=== PATIENT | male | born 1985 | race Caucasian/White ===

== ENCOUNTER 2017-11-19 10:23 | Emergency (ER) | payer MEDICAID, OTHER ==
[2017-11-19 10:23] VITALS: BMI 22.4
[2017-11-19 10:35] VITALS: TEMP 98
[2017-11-19] MEDS ORDERED: Sodium Chloride 0.9% 1,000 ML ONE (11:28)
[2017-11-19] MEDS: Sodium Chloride 0.9% 1,000 ML IV ONE (11:31)
[2017-11-19 11:35] LABS: BASO % 1.1 % (0.0-2.0); EOS # 0.1 K/uL (0.0-0.7); EOS % 2.1 % (0.0-4.0); HEMOGLOBIN 15.4 g/dL (12.0-18.0); LYMPH # 2.1 K/uL (1.0-4.3); LYMPH % 49.8 % (20.0-40.0); MEAN CELL VOLUME 91.2 fL (80.0-94.0); MEAN CORPUSCULAR HEMOGLOBIN 31.5 pg (27.0-31.0); MEAN CORPUSCULAR HGB CONC 34.5 g/dL (33.0-37.0); MEAN PLATELET VOLUME 9.8 fL (7.2-11.7); MONO # 0.4 K/uL (0.0-0.8); MONO % 9.1 % (0.0-10.0); NEUT # 1.6 K/uL (1.8-7.0); NEUT % 37.9 % (50.0-75.0); NRBC % 0.1 % (0.0-2.0); RBC 4.88 Mil/uL (4.40-5.90); RED CELL DISTRIBUTION WIDTH 13.5 % (11.5-14.5); WHITE BLOOD COUNT 4.1 K/uL (4.8-10.8)
[2017-11-19 11:48] LABS: ALBUMIN 4.2 g/dL (3.5-5.0); BLOOD UREA NITROGEN 14 mg/dL (9-20); CALCIUM 9.5 mg/dl (8.6-10.4); GFR AFRICAN-AMERICAN > 60; GFR NON-AFRICAN AMERICAN > 60
[2017-11-19 11:49] LABS: ALB/GLOB RATIO 1.5 (1.0-2.1); ALT/SGPT 22 U/L (21-72); AST/SGOT 29 U/L (17-59); LIPASE 134 U/L (23-300)
--- NOTE | 2017-11-19 13:37 | CP.PCM.CON ---
History of Present Illness - History of Present Illness History of Present Illness: Gastroenterology Fellow/PGY5 Consult Note 32yo man with PMH Diabetes, Depression, and Anxiety presenting with vomiting. Endorses increased stress since July 2017 due to personal stressors and court appearances leading to increased alcohol and tobacco abuse for the last three months. Admits to similar episodes of vomiting since 07/2015 that occurred once every two weeks with progression to daily induced vomiting of acid reflux on first awakening due to increased drinking at night, eating dinner before bed , and immediately going to sleep. Admits to using Nexium for only four days in 2016 after diagnosis of small Rafaela-downey tear. Patient notes induced vomiting yesterday morning followed by burning sensation in the back of his throat. He coughed up 2 ounces of bright red blood a few times throughout the day. Attempted to gargle salt water with worsened irritation of his throat. He has used chloraseptic spray OTC last night and this morning with unchanged burning sensation of his gingiva and back of his throat. Prior EGD 07/2015 showed small Rafaela Downey tear at GE junction and H pylori negative gastritis. Social history: increased alcohol use since 07/2017 10 shots whiskey daily, marijuana daily, 2ppd since 07/2017 with prior 1/2 ppd Family history: Mom- Diabetes, Dad- HTN Surgical history: Tonsillectomy Review of Systems - Review of Systems Review of Systems: 12-point review of systems negative except for as above Past Patient History - Infectious Disease Hx of Infectious Diseases: None - Past Medical History & Family History Past Medical History?: Yes - Past Social History Smoking Status: Heavy Smoker > 10 Cigarettes Daily - CARDIAC Hx Cardiac Disorders: No - PULMONARY Hx Respiratory Disorders: No - NEUROLOGICAL Hx Neurological Disorder: No - HEENT Hx HEENT Problems: Yes (BIFOCAL) - RENAL Hx Chronic Kidney Disease: No - ENDOCRINE/METABOLIC Hx Endocrine Disorders: Yes Hx Diabetes Mellitus Type 2: Yes - HEMATOLOGICAL/ONCOLOGICAL Hx Blood Disorders: No - INTEGUMENTARY Hx Dermatological Problems: No - MUSCULOSKELETAL/RHEUMATOLOGICAL Hx Musculoskeletal Disorders: No - GASTROINTESTINAL Hx Gastrointestinal Disorders: Yes (ACID REFLUX, NAUSEA AND VOMITING) - GENITOURINARY/GYNECOLOGICAL Hx Genitourinary Disorders: No - PSYCHIATRIC Hx Psychophysiologic Disorder: Yes Hx Anxiety: Yes Hx Depression: Yes Hx Substance Use: Yes (marijuana 2 days ago) - SURGICAL HISTORY Hx Surgeries: Yes Hx Tonsillectomy: Yes - ANESTHESIA Hx Anesthesia: Yes Hx Anesthesia Reactions: No Hx Malignant Hyperthermia: No Meds Home Medications: Home Medication List Medication Instructions Recorded Confirmed Type Pantoprazole [Protonix EC Tab] 20 mg PO DAILY #30 ect 11/19/17 Rx Sucralfate [Carafate Oral Susp] 1 gm PO BID #1 bottle 11/19/17 Rx Allergies/Adverse Reactions: Allergies Allergy/AdvReac Type Severity Reaction Status Date / Time No Known Allergies Allergy Verified 11/19/17 10:35 Physical Exam - Constitutional Appears: Non-toxic, No Acute Distress - Head Exam Head Exam: ATRAUMATIC, NORMOCEPHALIC - Eye Exam Eye Exam: EOMI, PERRL. absent: Scleral icterus Pupil Exam: PERRL. absent: Miosis, Mydriatic - ENT Exam ENT Exam: Mucous Membranes Moist, Normal Oropharynx - Neck Exam Neck exam: Positive for: Full Rom, Normal Inspection - Respiratory Exam Respiratory Exam: Clear to Auscultation Bilateral. absent: Rales, Rhonchi, Wheezes - Cardiovascular Exam Cardiovascular Exam: RRR, +S1, +S2. absent: Gallop, Rubs - GI/Abdominal Exam GI & Abdominal Exam: Normal Bowel Sounds, Soft. absent: Distended, Firm, Guarding, Organomegaly, Rebound, Rigid, Tenderness - Extremities Exam Extremities exam: Positive for: full ROM, normal inspection. Negative for: pedal edema - Neurological Exam Neurological exam: Alert, Oriented x3 - Psychiatric Exam Psychiatric exam: Normal Affect, Normal Mood - Skin Skin Exam: Dry, Intact, Normal Color, Warm Results - Vital Signs Recent Vital Signs: Last Vital Signs Temp 98 F 11/19/17 10:30 Pulse 85 11/19/17 10:30 Resp 18 11/19/17 10:30 BP 127/77 11/19/17 10:30 Pulse Ox 97 11/19/17 10:30 - Labs Result Diagrams: 11/19/17 11:31 11/19/17 11:31 Labs: Laboratory Results - last 24 hr 11/19/17 11/19/17 11:31 11:31 WBC 4.1 L RBC 4.88 Hgb 15.4 Hct 44.5 MCV 91.2 MCH 31.5 H MCHC 34.5 RDW 13.5 Plt Count 147 MPV 9.8 Neut % (Auto) 37.9 L Lymph % (Auto) 49.8 H [place] % (Auto) 9.1 Eos % (Auto) 2.1 Baso % (Auto) 1.1 Neut # (Auto) 1.6 L Lymph # (Auto) 2.1 [place] # (Auto) 0.4 Eos # (Auto) 0.1 Baso # (Auto) 0.0 Sodium 142 Potassium 4.1 Chloride 105 Carbon Dioxide 24 Anion Gap 17 BUN 14 Creatinine 0.8 Est GFR ( Amer) > 60 Est GFR (Non-Af Amer) > 60 Random Glucose 131 H Calcium 9.5 Total Bilirubin 0.4 AST 29 ALT 22 Alkaline Phosphatase 100 Total Protein 7.1 Albumin 4.2 Globulin 2.9 Albumin/Globulin Ratio 1.5 Lipase 134 Assessment & Plan - Assessment and Plan (Free Text) Assessment: 32yo man with PMH Diabetes, Depression, and Anxiety presenting with throat irritation after resolved coughing up of 2 ounces of blood over 24 hours ago. Active treatment of throat irritation 2/2 mucosal tear from fingernail trauma due to induced vomiting and acid reflux. Prior EGD 07/2015 showed small Rafaela Downey tear at GE junction and H pylori negative gastritis. Plan: -H/H stable -hemodynamically stable -resolved coughing up blood since the morning of 11/17/17 -start Protonix 40mg BID and carafate 1g BID for 2 weeks -followed by [facility] as needed -counselled on tobacco, alcohol, and marijuana cessation -counselled on dietary lifestyle modifications -follow up with Dr. Elliott in outpatient office in 2 weeks -counselled to follow up with PCP in regards to Anxiety -patient agrees to above plan
--- NOTE | 2017-11-19 13:45 | C.PDOC ---
History Of Present Illness 32-year-old male, PMHx includes gastric ulcers, presents to the emergency department with complaints of multiple episodes of blood streaked vomiting and abdominal pain since this morning . Patient states he called his GI anhd was instructed to come to ED for further evaluation. Patient states he had an endoscopy 2-3 yrs ago. He is also complaining of sore throat, states he puts his hand in his mouth to induce vomiting. Patient denies fever, chills, chest pain, shortness of breath, dysuria. GI Dr Elliott Time Seen by Provider: 11/19/17 10:39 Chief Complaint (Nursing): Abdominal Pain History Per: Patient History/Exam Limitations: no limitations Onset/Duration Of Symptoms: Days Current Symptoms Are (Timing): Still Present Severity: Moderate Location Of Pain/Discomfort: Epigastric Past Medical History Reviewed: Historical Data, Nursing Documentation, Vital Signs Vital Signs: Last Vital Signs Temp 98 F 11/19/17 10:30 Pulse 69 11/19/17 14:07 Resp 20 11/19/17 14:07 BP 126/72 11/19/17 14:07 Pulse Ox 97 11/19/17 14:44 - Medical History PMH: Anxiety, Depression, Diabetes, Pneumonia (WHEN CHILD) Surgical History: Endoscopy, Tonsillectomy - [facility] Procedures IMMOBILIZ/WOUND ATTN NEC (11/09/14) INJECT ANTIBIOTIC (01/05/05) INJECT/INFUSE ELECTROLYT (06/20/12) INJECT/INFUSE NEC (06/20/12) NEBULIZER THERAPY (06/20/12) Family History: States: No Known Family Hx - Social History Hx Tobacco Use: Yes Hx Alcohol Use: No Hx Substance Use: Yes (marijuana 2 days ago) - Immunization History Hx Tetanus Toxoid Vaccination: No Review Of Systems Constitutional: Negative for: Fever, Chills ENT: Positive for: Throat Pain Cardiovascular: Negative for: Chest Pain, Palpitations Respiratory: Negative for: Cough, Shortness of Breath Gastrointestinal: Positive for: Nausea, Vomiting, Abdominal Pain, Hematemesis. Negative for: Diarrhea, Constipation, Hematochezia Genitourinary: Negative for: Dysuria, Hematuria Musculoskeletal: Negative for: Back Pain Physical Exam - Physical Exam Appears: Well, Non-toxic, No Acute Distress, Other (anxious appearing ) Skin: Normal Color, Warm, Dry, No Rash Head: Normacephalic Eye(s): bilateral: Normal Inspection Oral Mucosa: Moist Throat: Normal, No Erythema, No Exudate Neck: Normal, Normal ROM Cardiovascular: Rhythm Regular Respiratory: Normal Breath Sounds, No Rales, No Rhonchi, No Wheezing Gastrointestinal/Abdominal: Bowel Sounds, Soft, Tenderness (epigastric TTP), No Guarding, No Rebound, Other ((-)McBurney's, (-)Sheridan's) Extremity: Normal ROM Neurological/Psych: Oriented x3 ED Course And Treatment - Laboratory Results Result Diagrams: 11/19/17 11:31 11/19/17 11:31 O2 Sat by Pulse Oximetry: 97 (RA) Pulse Ox Interpretation: Normal Progress Note: Bloodwork and UA ordered and reviewed. Patient given IV NS bolus , IV Protonix. GI fellow came to ED to evaluate patient - recommends discharge home with Carafate and Protonix. Reevaluation Time: 13:45 Reassessment Condition: Improved (Patient resting comfortably, in no pain/ distress. On exam abdomen is soft and nontender. No episodes of vomiting in ED. Patient given Rxs for Protonix and Carafate, and he was instructed to follow up with GI within 1 week. He understands he should return to ED if symptoms worsen.) Disposition Counseled Patient/Family Regarding: Studies Performed, Diagnosis, Need For Followup, Rx Given - Disposition Referrals: Kamar Elliott MD [Staff Provider] - Disposition: HOME/ ROUTINE Disposition Time: 13:45 Condition: STABLE Additional Instructions: FOLLOW UP WITH YOUR DOCTOR IN 1-2 DAYS, AND WITH GI WITHIN 1 WEEK USE MEDICATIONS DIRECTED RETURN TO ER IF SYMPTOMS WORSEN Prescriptions: Pantoprazole [Protonix EC Tab] 20 mg PO DAILY #30 ect Sucralfate [Carafate Oral Susp] 1 gm PO BID #1 bottle Instructions: Nausea and Vomiting, Adult (DC) Forms: [employer] (Samoan) Print Language: ICELANDIC - Clinical Impression Clinical Impression: Nausea & vomiting - Scribe Statement The provider has reviewed the documentation as recorded by the Scribe (Ramses Burroughs) All medical record entries made by the Scribe were at my direction and personally dictated by me. I have reviewed the chart and agree that the record accurately reflects my personal performance of the history, physical exam, medical decision making, and the department course for this patient. I have also personally directed, reviewed, and agree with the discharge instructions and disposition.
--- NOTE | 2017-11-19 13:47 | C.PDOC ---
Time Seen by Provider: 11/19/17 10:39 Chief Complaint (Nursing): Abdominal Pain Past Medical History Vital Signs: Last Vital Signs Temp 98 F 11/19/17 10:30 Pulse 85 11/19/17 10:30 Resp 18 11/19/17 10:30 BP 127/77 11/19/17 10:30 Pulse Ox 97 11/19/17 10:30 - Medical History PMH: Anxiety, Depression, Diabetes, Pneumonia (WHEN CHILD) Denies: Hepatitis, HIV, HTN, Chronic Kidney Disease, Seizures, Sexually Transmitted Disease Surgical History: Endoscopy, Tonsillectomy - [facility] Procedures IMMOBILIZ/WOUND ATTN NEC (11/09/14) INJECT ANTIBIOTIC (01/05/05) INJECT/INFUSE ELECTROLYT (06/20/12) INJECT/INFUSE NEC (06/20/12) NEBULIZER THERAPY (06/20/12) - Social History Hx Tobacco Use: Yes Hx Alcohol Use: No Hx Substance Use: Yes (marijuana 2 days ago) - Immunization History Hx Tetanus Toxoid Vaccination: No ED Course And Treatment - Laboratory Results Result Diagrams: 11/19/17 11:31 11/19/17 11:31 O2 Sat by Pulse Oximetry: 97 Disposition Counseled Patient/Family Regarding: Diagnosis, Need For Followup, Rx Given - Disposition Referrals: Kamar Elliott MD [Staff Provider] - Disposition: HOME/ ROUTINE Disposition Time: 13:45 Condition: STABLE Additional Instructions: FOLLOW UP WITH YOUR DOCTOR IN 1-2 DAYS, AND WITH GI WITHIN 1 WEEK USE MEDICATIONS DIRECTED RETURN TO ER IF SYMPTOMS WORSEN Prescriptions: Pantoprazole [Protonix EC Tab] 20 mg PO DAILY #30 ect Sucralfate [Carafate Oral Susp] 1 gm PO BID #1 bottle Instructions: Nausea and Vomiting, Adult (DC) Print Language: BELGIAN - POA Present On Arrival: None - Clinical Impression Clinical Impression: Nausea & vomiting
[2017-11-19 14:08] VITALS: BP 126/72; PULSE 69; RESP 20
[2017-11-19 14:42] VITALS: O2SAT 97
== END 2017-11-19 14:07 | disposition home or self-care (01) ==
LOC: C.ER 10:23
DX: R11.2 Nausea with vomiting, unspecified (principal)
CPT/HCPCS: 80053; 83690; 85025; 96361; 96374; 99283; C9113; J7040

== ENCOUNTER 2018-09-23 20:13 | Emergency (ER) | payer MEDICAID, OTHER ==
[2018-09-23 20:14] VITALS: BMI 22.4
[2018-09-23 20:25] VITALS: BP 122/85; PULSE 110; RESP 20; TEMP 98.2; O2SAT 98
[2018-09-23] MEDS ORDERED: Sodium Chloride 0.9% 1,000 ML IV ONE (20:43)
--- NOTE | 2018-09-23 20:45 | C.PDOC ---
History Of Present Illness 32 year old male with Hx of substance abuse presents with abdominal pain, vomiting and diarrhea. Last heroin use was 2 days ago. Patient also requests detox. Denies fever or other complaints. Time Seen by Provider: 09/23/18 20:27 Chief Complaint (Nursing): Substance Abuse History Per: Patient History/Exam Limitations: no limitations Onset/Duration Of Symptoms: Hrs Current Symptoms Are (Timing): Still Present Suicide/Self Injury Attempted (Context): None Modifying Factor(s): None Associated Symptoms: Other (Abdominal pain, vomiting, diarrhea) Involuntary Hold By: None Recent travel outside of the [place]: No Past Medical History Reviewed: Historical Data, Nursing Documentation, Vital Signs Vital Signs: Last Vital Signs Temp 98.2 F 09/23/18 20:21 Pulse 110 H 09/23/18 20:21 Resp 20 09/23/18 20:21 BP 122/85 09/23/18 20:21 Pulse Ox 98 09/23/18 20:21 - Medical History PMH: Anxiety, Depression, Diabetes, Pneumonia (WHEN CHILD) Denies: Hepatitis, HIV, HTN, Chronic Kidney Disease, Seizures, Sexually Transmitted Disease Surgical History: Endoscopy, Tonsillectomy - [facility] Procedures IMMOBILIZ/WOUND ATTN NEC (11/09/14) INJECT ANTIBIOTIC (01/05/05) INJECT/INFUSE ELECTROLYT (06/20/12) INJECT/INFUSE NEC (06/20/12) NEBULIZER THERAPY (06/20/12) Family History: States: No Known Family Hx - Social History Hx Tobacco Use: Yes Hx Alcohol Use: No Hx Substance Use: Yes (marijuana 2 days ago) - Immunization History Hx Tetanus Toxoid Vaccination: No Hx Influenza Vaccination: No Hx Pneumococcal Vaccination: No Review Of Systems Constitutional: Negative for: Fever, Chills Cardiovascular: Negative for: Chest Pain, Palpitations Respiratory: Negative for: Cough, Shortness of Breath Gastrointestinal: Positive for: Vomiting, Abdominal Pain, Diarrhea Genitourinary: Negative for: Dysuria, Hematuria Musculoskeletal: Negative for: Back Pain Neurological: Negative for: Weakness, Numbness Physical Exam - Physical Exam Appears: Non-toxic Skin: Normal Color, Warm, Dry Head: Atraumatic, Normacephalic Eye(s): bilateral: Normal Inspection Oral Mucosa: Moist Neck: Normal, Supple Chest: Symmetrical, No Tenderness Cardiovascular: Rhythm Regular Respiratory: Normal Breath Sounds, No Rales, No Rhonchi, No Wheezing Gastrointestinal/Abdominal: Soft, Tenderness (Epigastric), No Guarding, No Rebound Back: No CVA Tenderness Neurological/Psych: Oriented x3, Normal Speech ED Course And Treatment O2 Sat by Pulse Oximetry: 98 (Room air) Pulse Ox Interpretation: Normal Medical Decision Making Medical Decision Making: suspect opiate w/d. will hydrate check labs, pain control, reassess. Blood work and urinalysis ordered. IV fluids, toradol, and zofran administered. during ed course, fmamily decline further w/u in er, asking for dc to take pt to hospital with detox bed. pt signs ama, explained risk of leaving without labs. explained have not exclude acute abdomianl pathology infection dehydration, decline asking for dc. clincally sober. accompaneied by family. Disposition - Disposition Disposition: AGAINST MEDICAL ADVICE Disposition Time: 21:35 Condition: STABLE Forms: [facility] (Norwegian) - Clinical Impression Clinical Impression: Drug abuse, Nausea & vomiting - Scribe Statement The provider has reviewed the documentation as recorded by the Scribaustin Alejandra All medical record entries made by the Scribe were at my direction and personally dictated by me. I have reviewed the chart and agree that the record accurately reflects my personal performance of the history, physical exam, medical decision making, and the department course for this patient. I have also personally directed, reviewed, and agree with the discharge instructions and disposition.
== END 2018-09-23 21:40 | disposition left against medical advice (07) ==
LOC: C.ER 20:13
DX: R11.2 Nausea with vomiting, unspecified (principal); F19.10 Other psychoactive substance abuse, uncomplicated